=== PATIENT | female | born 1995 | race Caucasian/White ===

== ENCOUNTER 2017-06-17 19:31 | Emergency (ER) | payer OTHER ==
[2017-06-17 19:49] VITALS: RESP 16
[2017-06-17] MEDS ORDERED: IBUPROFEN 600 MG TAB PO ONE (19:58)
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
[2017-06-17] MEDS ORDERED: CYCLOBENZAPRINE 10MG PREPACK#3 BTL TAKEHOME ONE (22:01)
[2017-06-17 22:12] VITALS: BP 103/74; PULSE 74; TEMP 97.9; O2SAT 96
== END 2017-06-17 22:12 | disposition home or self-care (01) ==
DX: S16.1XXA Strain of muscle, fascia and tendon at neck level, initial encounter (principal); V49.50XA Passenger injured in collision with unspecified motor vehicles in traffic accident, initial encounter; Y92.410 Unspecified street and highway as the place of occurrence of the external cause